=== PATIENT | female | born 1925 | race Caucasian/White ===

== ENCOUNTER → 2017-06-13 12:26 | Outpatient (CLI) | payer MEDICARE | END | disposition home or self-care (01) | LOC: D.RAD 12:26 | DX: J44.9 Chronic obstructive pulmonary disease, unspecified (principal) ==

== ENCOUNTER → 2017-08-03 10:37 | Outpatient (CLI) | payer MEDICARE ==
[2017-08-03 11:52] LABS: BASOPHILS 0.5 % (0-2); EOSINOPHILS 1.9 % (0-7); HEMATOCRIT 38.5 % (36.0-48.0); HEMOGLOBIN 13.3 g/dL (12-16); IMMATURE GRANULOCYTES 0.2 % (0-5); LYMPHOCYTES 14.4 % (15-50); MCH 33.3 pg (26.0-34.0); MCHC 34.5 g/dL (31.0-37.0); MCV 96.5 fL (80.0-100.0); MEAN PLATELET VOLUME 9.5 fL (7.4-10.4); MONOCYTES 7.6 % (2-11); NEUTROPHILS 75.4 % (40-80); PLATELET COUNT 158 10x3/uL (130-400); RBC 3.99 10x6/uL (4.00-5.40); RDW 12.8 % (11.5-14.5); WBC 6.3 10x3/uL (4.8-10.8)
== END | disposition home or self-care (01) ==
LOC: D.CN 10:37
PROVIDERS: Family Medicine
DX: R05 Cough (principal); R06.00 Dyspnea, unspecified; R01.1 Cardiac murmur, unspecified; I10 Essential (primary) hypertension; J44.9 Chronic obstructive pulmonary disease, unspecified

== ENCOUNTER → 2017-08-11 10:52 | Outpatient (CLI) | payer MEDICARE | END | disposition home or self-care (01) | LOC: D.CT 10:52 | DX: J90 Pleural effusion, not elsewhere classified (principal) ==